=== PATIENT | female | born 1965 | race Caucasian/White ===

== ENCOUNTER 2016-09-12 17:43 | Emergency (ER) | payer OTHER ==
[~2016-09-12] VITALS: Ht 162.6 cm; Wt 111.7 kg
[2016-09-12 18:05] LABS: HEMATOCRIT 35.9 % (36.0-46.0); MCH 28.8 PG (29.0-34.0); MCV 84.7 FL (83-99); MEAN PLAT.VOLUME 10.1 uM^3 (9.5-12.4); PLATELET COUNT 240 K/uL (156-360); RBC DIS.WIDTH-CV 13.1 % (11.8-14.6); RBC DIS.WIDTH-SD 39.8 % (39-53); RED BLOOD COUNT 4.24 M/uL (3.80-5.20); WHITE BLOOD COUNT 11.9 K/uL (4.1-10.2)
[2016-09-12 18:16] LABS: CHLORIDE 103 mEq/L (99-109); POTASSIUM 4.2 mEq/L (3.7-5.4); SODIUM 137 mEq/L (136-147)
[2016-09-12 18:17] LABS: GLUCOSE 101 mg/dL (70-99)
[2016-09-12 18:19] LABS: ANION GAP 10 MEQ/L (2-14)
[2016-09-12 18:21] LABS: GFR ESTIMATE (CALCULATED) > 59 mL/min/
[2016-09-12 18:22] LABS: UREA NITROGEN (BUN) 13 mg/dL (9-23)
[2016-09-12 18:26] LABS: TROP-I INTERPRETATION NEGATIVE; TROPONIN-I < 0.01 ng/mL (0.0-0.30)
[2016-09-12 21:06] LABS: TROP-I INTERPRETATION NEGATIVE; TROPONIN-I < 0.01 ng/mL (0.0-0.30)
[2016-09-12 21:30] VITALS: BP 152/100
== END 2016-09-12 21:30 | disposition home or self-care (01) ==
LOC: EME 17:43
PROVIDERS: Emergency Medicine
DX: R07.89 Other chest pain (principal); Z87.891 Personal history of nicotine dependence; K21.9 Gastro-esophageal reflux disease without esophagitis
CPT/HCPCS: 71020; 80048; 84484; 85027; 93005; 99281; 99284

== ENCOUNTER 2016-12-18 04:18 | Emergency (ER) | payer OTHER ==
[~2016-12-18] VITALS: Ht 167.6 cm; Wt 112.2 kg
[2016-12-18 04:53] LABS: HEMATOCRIT 34.7 % (36.0-46.0); MCH 28.9 PG (29.0-34.0); MCV 84.8 FL (83-99); MEAN PLAT.VOLUME 10.5 uM^3 (9.5-12.4); PLATELET COUNT 204 K/uL (156-360); RBC DIS.WIDTH-SD 39.3 % (39-53); RED BLOOD COUNT 4.09 M/uL (3.80-5.20); WHITE BLOOD COUNT 11.5 K/uL (4.1-10.2)
[2016-12-18 05:03] LABS: CHLORIDE 104 mEq/L (99-109); POTASSIUM 4.2 mEq/L (3.7-5.4); SODIUM 139 mEq/L (136-147)
[2016-12-18 05:05] LABS: GLUCOSE 108 mg/dL (70-99)
[2016-12-18 05:06] LABS: D-DIMER ELISA < 150.00 ng/mLDDU (<230)
[2016-12-18 05:07] LABS: ANION GAP 12 MEQ/L (2-14)
[2016-12-18 05:09] LABS: GFR ESTIMATE (CALCULATED) > 59 mL/min/
[2016-12-18 05:10] LABS: UREA NITROGEN (BUN) 13 mg/dL (9-23)
[2016-12-18 05:17] LABS: TROP-I INTERPRETATION NEGATIVE; TROPONIN-I < 0.01 ng/mL (0.0-0.30)
[2016-12-18 08:40] LABS: TROP-I INTERPRETATION NEGATIVE; TROPONIN-I < 0.01 ng/mL (0.0-0.30)
[2016-12-18 08:55] VITALS: BP 153/81
== END 2016-12-18 08:56 | disposition home or self-care (01) ==
LOC: EME 04:18
PROVIDERS: Nurse Practitioner Family; Physician Assistant
DX: R07.9 Chest pain, unspecified (principal); K21.9 Gastro-esophageal reflux disease without esophagitis; Z87.891 Personal history of nicotine dependence
CPT/HCPCS: 71020; 80048; 84484; 85027; 85379; 93005; 99281; 99284

== ENCOUNTER 2017-06-19 02:39 | Emergency (ER) | payer OTHER ==
[~2017-06-19] VITALS: Ht 167.6 cm; Wt 112.4 kg
[2017-06-19 03:15] LABS: HEMATOCRIT 34.7 % (36.0-46.0); HEMOGLOBIN 11.8 G/DL (11.9-15.5); MCH 28.5 PG (29.0-34.0); MCV 83.8 FL (83-99); PLATELET COUNT 220 K/uL (156-360); RBC DIS.WIDTH-CV 13.3 % (11.8-14.6); RBC DIS.WIDTH-SD 40.8 % (39-53); RED BLOOD COUNT 4.14 M/uL (3.80-5.20); WHITE BLOOD COUNT 9.2 K/uL (4.1-10.2)
[2017-06-19 03:26] LABS: ALBUMIN 4.2 g/dL (3.2-4.8); CHLORIDE 105 mEq/L (99-109); POTASSIUM 3.9 mEq/L (3.7-5.4); SODIUM 139 mEq/L (136-147)
[2017-06-19 03:28] LABS: GLUCOSE 169 mg/dL (70-99); TOTAL PROTEIN 7.4 g/dL (6.4-8.3)
[2017-06-19 03:30] LABS: TOTAL BILIRUBIN 0.4 mg/dL (0.0-1.0)
[2017-06-19 03:32] LABS: ALKALINE PHOSPHATASE 117 IU/L (3-129); CREATININE 0.9 mg/dL (0.6-1.3); GFR ESTIMATE (CALCULATED) > 59 mL/min/
[2017-06-19 03:33] LABS: UREA NITROGEN (BUN) 13 mg/dL (9-23)
[2017-06-19 03:34] LABS: AST (GOT) 20 IU/L (2-34)
[2017-06-19 03:35] LABS: ALT (GPT) 29 IU/L (3-49); LIPASE 18 U/L (1.0-51.0)
[2017-06-19 03:36] LABS: TROP-I INTERPRETATION NEGATIVE; TROPONIN-I < 0.01 ng/mL (0.0-0.30)
[2017-06-19 05:06] VITALS: BP 159/75
== END 2017-06-19 05:07 | disposition home or self-care (01) ==
LOC: EME 02:39
PROVIDERS: Emergency Medicine
DX: K80.62 Calculus of gallbladder and bile duct with acute cholecystitis without obstruction (principal); Z87.891 Personal history of nicotine dependence
CPT/HCPCS: 71045; 74177; 76705; 80053; 83690; 84484; 85027; 93005; 99281; 99285; J1885; J2765; J3010

== ENCOUNTER → 2017-06-20 | Outpatient (CLI) | payer OTHER | END | disposition home or self-care (01) | LOC: CDC 15:47 | DX: Z01.810 Encounter for preprocedural cardiovascular examination (principal); K80.20 Calculus of gallbladder without cholecystitis without obstruction | CPT/HCPCS: 93000 ==

== ENCOUNTER 2017-07-05 07:35 | Day surgery (SDC) | payer OTHER ==
[~2017-07-05] VITALS: Ht 167.6 cm; Wt 108.8 kg
[~2017-07-05 07:35] MED LIST: BUPROPION HCL150 M2 PO; LEXAPRO10 MG PO; PROTONIX40 MG PO; SYNTHROID112 MCG PO
[2017-07-05 08:13] VITALS: BP 178/90
[2017-07-05] MEDS ORDERED: COLACE100 MG PO (09:49)
[2017-07-05] MEDS ORDERED: DILAUDID4 MG PO (09:49)
[2017-07-05] MEDS ORDERED: ONDANSETRON HCL8 MG PO (09:49)
[2017-07-05 12:50] VITALS: BP 129/60
[2017-07-05 13:45] VITALS: BP 132/70
[2017-07-05 14:35] VITALS: BP 140/70
== END 2017-07-05 14:39 | disposition home or self-care (01) ==
LOC: SDC 07:35
PROC: 0FT44ZZ Resection of Gallbladder, Percutaneous Endoscopic Approach (ICD-10-PCS; principal; 2017-07-05)
DX: K80.10 Calculus of gallbladder with chronic cholecystitis without obstruction (principal); E03.9 Hypothyroidism, unspecified; Z87.891 Personal history of nicotine dependence
CPT/HCPCS: 84702; 88304; J0131; J0690; J1100; J1170; J1885; J2250; J2405; J2710; J3010; J7643; Q0175; S0020